=== PATIENT | female | born 1975 | race Caucasian/White ===

== ENCOUNTER 2017-04-04 09:00 | Inpatient (IN) | payer MEDICARE, OTHER ==
[~2017-04-04] VITALS: Ht 165.1 cm; Wt 104.3 kg
--- NOTE | ~2017-04-04 | DS ---
Unit #: [id number] #: [id number] Patient: SARAH BOWERS [id number] [facility] [address] [place] [address] [id number] MR#: [id number] NAME: SARAH BOWERS ROOM: P256 Age: 41 Sex: F Admission Date: 04/04/2017 : 1975 Discharge Date: 04/08/2017 Attending Physician: Shaw Armendariz M.D. Primary Care Physician: Oumar YouPSinghRRosalia DISCHARGE SUMMARY REASON FOR ADMISSION The patient is a 41-year-old white female admitted with increasing depression and suicidal ideation. HOSPITAL COURSE The patient was admitted to the [facility] and placed on suicide precautions. Given her history of poor response to paroxetine as well as her history of chronic pain, paroxetine was tapered and discontinued, and the patient instead begun on Cymbalta with dosage titration to 60 mg daily. The patient was also begun on low-dose Ativan on a p.r.n. basis and was also begun on Ambien 5 mg at h.s. p.r.n. insomnia. The patient had reported that outside the hospital she was taking up to 60 mg of Lunesta on a daily basis. We explained to the patient this was an excessive dose, and this physician has recommended that the patient pursue cognitive behavioral therapy regarding her chronic insomnia upon discharge. By 04/08/2017, the patient was in bright spirits and agreeable with plan for discharge. Arrangements were made for the patient to attend the partial hospitalization program at [facility]. Discharge was ordered. FINAL DIAGNOSES 1. Major depressive disorder, recurrent, moderate. 2. Obesity. 3. Chronic pain. 4. History of fractured ankle. DISPOSITION ON DISCHARGE The patient was discharged on the following medications: 1. Lortab 10/325, 1 tablet 3 times daily p.r.n. pain. 2. Lioresal 20 mg 3 times daily for muscle relaxation. 3. Topamax 50 mg twice daily for migraine headache. 4. Protonix 40 mg daily for GERD. 5. Zofran 4 mg q. 4 hours p.r.n. nausea and vomiting. 6. Cymbalta 60 mg daily for depression. 7. Ambien 5 mg at h.s. p.r.n. insomnia. 8. MiraLAX 17 grams once daily for constipation. 9. Ativan 0.5 mg q. 6 hours p.r.n. anxiety. DIET AND ACTIVITY No dietary or physical restrictions were placed on the patient at the time of discharge. FOLLOWUP Followup will take place in the partial hospitalization program at [facility] Unit #: [id number] #: [id number] [facility] PROGNOSIS Considered fair. Dictated by... Jarvis Moses TD: 04/09/2017 07:34 JOB #: [id number] DISCHARGE SUMMARY Page 1 of 1 X Shaw Armendariz MD X DISCHARGE SUMMARY
--- NOTE | ~2017-04-04 | HP ---
Unit #: [id number] #: [id number] Patient: LETITIA BOWERS [id number] [place] [address] [id number] I MR#: [id number] NAME: LETITIA BOWERS ROOM: P256 Age: 41 Sex: F Admission Date: 04/04/2017 : 1975 Attending Physician: Shaw Armendariz M.D. Admitting Physician: Shaw Armendariz M.D. Primary Care Physician: Jamia Colmenares A.P.R.N. HISTORY AND PHYSICAL HISTORY OF PRESENT ILLNESS Letitia is a 41-year-old female admitted on 04/04/[address] [place] [address] for suicidal ideation. PAST MEDICAL HISTORY 1. Obesity. 2. Constipation. 3. Chronic back pain. 4. Migraines. 5. Hypertension. 6. GERD. PAST SURGICAL HISTORY 1. Cholecystectomy. 2. Appendectomy. 3. Hysterectomy. 4. Gastric bypass. 5. Left ankle surgical repair after a fracture. ALLERGIES DHEA, Relpax. SOCIAL HISTORY Denies tobacco, alcohol or illegal drug use. She is currently and living with her and her children. FAMILY HISTORY Noncontributory. REVIEW OF SYSTEMS CONSTITUTIONAL: No fever or chills. HEENT: Denies any sore throat, ear pain or runny nose. CARDIOVASCULAR: Denies chest pain, irregular heart rhythm or palpitations. CHEST: Denies shortness of breath or cough. No hemoptysis. GASTROINTESTINAL: Denies nausea, vomiting, diarrhea or chronic constipation. ENDOCRINE: Denies history of increased thirst or urination. No recent significant weight loss or gain. GENITOURINARY: Denies dysuria, frequency, or hematuria. SKIN: Denies any rashes. HEMATOLOGIC: Denies history of increased bleeding or bruising. MUSCULOSKELETAL: Denies any hot, swollen joints. No generalized muscle pain. Unit #: [id number] #: [id number] Patient: LETITIA BOWERS NEUROLOGIC: Denies problems with vision or speech. No frequent, severe headaches. No numbness, tingling or weakness in any extremities. Denies loss of bladder or bowel control. CURRENT MEDICATIONS 1. Abilify. 2. Lunesta. 3. Metoprolol. 4. [place]. 5. Paxil. 6. Zofran. 7. Hydroxyzine. 8. Trazodone. PHYSICAL EXAMINATION GENERAL: Alert, oriented, in no acute distress. VITAL SIGNS: Blood pressure 115/77, heart rate 89, respirations 18, temperature 98.2. HEIGHT: 5 feet 5. WEIGHT: 230 pounds. SKIN: Warm and dry without rash or lesion. HEENT: Normocephalic. TMs not viewed. Oral and nasal passages clear. Conjunctivae clear. PERRLA. EOMs intact. NECK: Supple without lymphadenopathy or thyromegaly. HEART: Regular rate and rhythm without murmur. LUNGS: Clear. ABDOMEN: Soft, nontender, without masses or hepatosplenomegaly. : Not done. EXTREMITIES: No evidence of cyanosis, clubbing or edema. Moves all without focal deficit. NEUROLOGICAL: Grossly within normal limits. Cranial Nerves: II: Visual matthews are intact. III, IV AND : Extraocular movements are intact. Pupils are equal, round and reactive to light. V: Facial sensation is grossly normal. VII: Facial movements and expression are normal. VIII: Auditory acuity grossly intact. IX, X: Uvula is midline. Phonation is normal. XI: Patient shrugs shoulders and turns head normally. XII: Tongue protrudes in the midline. Sensory and Motor Function: Sensory and motor sensation is grossly normal. Motor: moves all extremities well. Coordination: Gait is normal. Deep Tendon Reflexes: Intact. IMPRESSION 1. Psychiatric admission. 2. Obesity. 3. Constipation. 4. Chronic back pain. 5. History of migraines. 6. Hypertension. 7. Gastroesophageal reflux disease. RECOMMENDATIONS PSYCHIATRIC: Per psychiatrist. MEDICAL: No contraindication to participate in facility's activities. MEDICAL PROGNOSIS Good. Unit #: [id number] #: [id number] Patient: LETITIA BOWERS MEDICAL CONDITION Stable. Dictated by... Angelic King/stephon TD: 04/06/2017 16:05 JOB #: [id number] HISTORY AND PHYSICAL Page 1 of 1 X RYAN EDWARDS APRN X HISTORY AND PHYSICAL
--- NOTE | ~2017-04-04 | PA ---
Unit #: [id number] #: [id number] Patient: SARAH BOWERS [id number] [facility] [address] [place] [address] [id number] I MR#: [id number] NAME: SARAH BOWERS ROOM: P256 Age: 41 Sex: F Admission Date: 04/04/2017 : 1975 Date of Assessment: 04/05/2017 Attending Physician: Shaw Armendariz M.D. Admitting Physician: Shaw Armendariz M.D. Primary Care Physician: Jamia Colmenares A.P.R.N. PSYCHIATRIC ASSESSMENT IDENTIFYING INFORMATION The patient is a 41-year-old white female admitted to the [facility] unit with increasing depression and suicidal ideation. CHIEF COMPLAINT I have a lot pain. INFORMANT Patient, patient's reliability is good. HISTORY OF PRESENT ILLNESS The patient is a 41-year-old white female with an extensive psychiatric history. The patient and her family moved to the [facility] from [place] approximately one month ago. She was scheduled to be seen at [facility] earlier today but did not keep that appointment. The patient reports that she has had increasing issues of anxiety, depressed mood mainly related her history of chronic pain and the recent move. The patient reports that she had seen a psychiatrist in [place] and was prescribed Paxil by that provider. She reports however that she does feel that it has effectively addressed her symptoms of depression. The patient reports one previous suicide attempt this having taken place approximately four to five years ago which resulted in psychiatric hospitalization in [place]. The patient lives with her and three children ages 21 through 15. She does not work outside the home. The patient reports that she suffers from chronic neck pain and headaches as well as a recent broken ankle. The patient reports no abuse of psychoactive substances. She does request a change in her pain medication during today's interview. She complains of poor sleep and loss of appetite. She reports that her has been supported. PAST PSYCHIATRIC HISTORY As above. PAST MEDICAL HISTORY Significant for the aforementioned history of GERD, chronic pain and headache. MEDICATIONS 1. Movantik. 2. Hydrocodone. 3. Baclofen. 4. Topamax. 5. Paxil. Unit #: [id number] #: [id number] Patient: SARAH BOWERS 6. Protonix. 7. Trazodone. ALLERGIES DHEA, Relpax. FAMILY HISTORY The patient's mother suffered from depression. SOCIAL HISTORY The patient lives with her three children and . She does not work outside the home and denies abuse of psychoactive substances. MENTAL STATUS EXAMINATION At this time reveals the patient to be a well-developed, well-nourished white female, appearing her stated age. She is in no apparent physical distress at the time of examination. She is awake, alert, and oriented in all spheres. Her mood is mildly dysphoric. Her affect congruent. Speech is generally relevant and coherent. There are no gross deficits in memory or cognition noted. Intelligence is judged to be in the average range based on fund of knowledge. The patient is cooperative throughout the interview. She is currently endorsing positive suicidal ideation. She denies homicidal ideation. She denies any psychotic symptoms. Her judgement and insight appear to be intact. The patient's assets motivation for change. Liabilities lack of resources. DIAGNOSTIC IMPRESSION 1. Major depressive disorder recurrent. 2. Moderate chronic pain. 3. GERD. TREATMENT PLAN The patient remains hospitalized for safety and stabilization. We will begin cross titration of Paxil and Cymbalta as the latter medication should be more affective in addressing both the patient's depressive symptoms and her chronic pain. The patient will participate in appropriate rayo and milieu activities and I will look at transfer her to the [address] [place] [address] unit in a timely fashion as possible. ESTIMATED LENGTH OF STAY Three to five days. Dictated by... Shaw Armendariz M.D. YESSICA/brisa TD: 04/06/2017 03:18 JOB #: [id number] Unit #: [id number] #: [id number] Patient: SARAH BOWERS PSYCHIATRIC ASSESSMENT Page 1 of 1 X Shaw Armendariz MD X PSYCHIATRIC ASSESSMENT
--- NOTE | ~2017-04-04 | PN ---
Unit #: [id number] #: [id number] Patient: SARAH BOWERS [id number] [facility] [address] [place] [address] [id number] MR#: [id number] NAME: SARAH BOWERS ROOM: P256 Age: 41 Sex: F Admission Date: 04/04/2017 : 1975 Attending Physician: Shaw Armendariz M.D. Admitting Physician: Shaw Armendariz M.D. Primary Care Physician: Angelic You PROGRESS NOTES DATE 04/07/2017 DISCUSSION The patient is requesting an increase in her dose of Cymbalta as she is already tolerating the 30-mg dose without complaint. We will go ahead and go to 60-mg dose for more effective antidepressant and analgesic efficacy. Dictated by... Shaw Armendariz M.D. CB/bzg TD: 04/07/2017 12:36 JOB #: [id number] ILE[facility] PROGRESS NOTES Page 1 of 1 X Shaw Armendariz MD PROGRESS NOTE
--- NOTE | ~2017-04-04 | PN ---
Unit #: [id number] #: [id number] Patient: SARAH BOWERS [id number] [facility] [address] [place] [address] [id number] MR#: [id number] NAME: SARAH BOWERS ROOM: P256 Age: 41 Sex: F Admission Date: 04/04/2017 : 1975 Attending Physician: Shaw Armendariz M.D. Admitting Physician: Shaw Armendariz M.D. Primary Care Physician: Angelic You PROGRESS NOTES DATE 04/06/2017 DISCUSSION The patient reports that she is experiencing significant pain today and did not sleep well last evening. She is also complaining of an earache. I have spoken with the patient regarding possible initiation of cognitive behavioral therapy to address her chronic insomnia as the patient states that she has been taking up to 6 mg nightly of Lunesta prior to coming to the hospital. Additionally, I will ask for any medical consult related to the patient's complaints of ear pain. The patient is probably a good candidate for participation in the intensive outpatient program at [facility] or the partial hospitalization program at [facility] upon discharge. Dictated by... Shaw Armendariz M.D. CB/jose TD: 04/06/2017 12:50 JOB #: [id number] [facility] PROGRESS NOTES Page 1 of 1 X Shaw Armendariz MD X PROGRESS NOTE
[2017-04-05 10:38] LABS: BASOPHIL# 0.1 X10e3 (0-0.3); BASOPHIL% 0.9 % (0-2.5); EOSINOPHIL# 0.3 X10e3 (0-0.7); EOSINOPHIL% 4.2 % (0.0-7.0); HEMATOCRIT 35.5 % (35.0-45.0); HEMOGLOBIN 11.6 gm/dL (12.0-16.0); LYMPHOCYTE# 1.9 X10e3 (1.0-3.5); LYMPHOCYTE% 30.4 % (17.0-45.0); MEAN CELL VOLUME 87.4 FL (83-96); MEAN CORPUSCULAR HEMOGLOBIN 28.5 PG (28-34); MEAN CORPUSCULAR HGB CONC 32.6 g/dL (30-36); MEAN PLATELET VOLUME 9.2 FL (6.5-11.5); MONOCYTE# 0.4 X10e3 (0-1.0); MONOCYTE% 6.1 % (3.0-12.0); NEUTROPHIL# 3.6 X10e3 (1.5-7.1); NEUTROPHIL% 58.4 % (40-75); PLATELET COUNT 346 X10e3 (140-420); RED BLOOD COUNT 4.06 X10e (3.90-5.30); RED CELL DISTRIBUTION WIDTH 15.1 % (11.0-15.5); WHITE BLOOD COUNT 6.1 X10e3 (4.0-10.5)
[2017-04-05 11:02] LABS: DIFF IND NO
[2017-04-05 11:11] LABS: BILIRUBIN,TOTAL 0.3 mg/dL (0.2-2.0); BUN/CREATININE RATIO 18.57; CALCIUM SERUM 9.3 mg/dL (8.4-10.2); CREATININE SERUM 0.7 mg/dL (0.6-1.4); GLOM FILT RATE Estimated 106.9 mL/min (>60); POTASSIUM 4.1 mmol/L (3.5-5.1); PROTEIN TOTAL SERUM 6.7 g/dL (6.0-8.3)
== END 2017-04-08 15:40 | disposition home or self-care (01) | DRG 885 ==
LOC: P2L 11:55 → P1S 11:55 → P2L 04-05 17:11
PROVIDERS: Specialist
DX: F33.9 Major depressive disorder, recurrent, unspecified (principal); R45.851 Suicidal ideations; I10 Essential (primary) hypertension; G89.29 Other chronic pain; K21.9 Gastro-esophageal reflux disease without esophagitis; E66.9 Obesity, unspecified; Z90.49 Acquired absence of other specified parts of digestive tract; Z90.710 Acquired absence of both cervix and uterus; Z98.84 Bariatric surgery status
CPT/HCPCS: 80053; 85025